=== PATIENT | male | born 1950 | race Caucasian/White ===

== ENCOUNTER 2018-08-10 12:45 | Inpatient (IN) | payer OTHER ==
[~2018-08-10] VITALS: Ht 165.1 cm; Wt 83.9 kg
[~2018-08-10 12:45] MED LIST: LIPITOR20 MG PO; NABUMETONE750 MG PO; NEURONTIN300 MG PO
[2018-08-17] MEDS ORDERED: GABAPENTIN800 MG PO (11:17)
[2018-08-17] MEDS ORDERED: DOCUSATE SODIU100 MG PO (11:17)
[2018-08-17] MEDS ORDERED: AMOX-CLAV 875-1 EACH PO (11:18)
[2018-08-17] MEDS ORDERED: PERCOCET 5-3251 EACH PO (11:18)
[2018-08-17] MEDS ORDERED: CLONAZEPAM1 MG PO (11:18)
== END 2018-08-17 14:45 | disposition home or self-care (01) | DRG 454 ==
LOC: O/R 08-16 05:01 → SURH 08-16 05:01
PROVIDERS: ADMIT Orthopaedic Surgery Orthopaedic Surgery of the Spine
PROC: 0SG1071 Fusion of 2 or more Lumbar Vertebral Joints with Autologous Tissue Substitute, Posterior Approach, Posterior Column, Open Approach (ICD-10-PCS; 2018-08-16)
PROC: 0SG10AJ Fusion of 2 or more Lumbar Vertebral Joints with Interbody Fusion Device, Posterior Approach, Anterior Column, Open Approach (ICD-10-PCS; 2018-08-16)
PROC: 0ST20ZZ Resection of Lumbar Vertebral Disc, Open Approach (ICD-10-PCS; 2018-08-16)
PROC: 07DS3ZZ Extraction of Vertebral Bone Marrow, Percutaneous Approach (ICD-10-PCS; 2018-08-16)
PROC: 0SG10A0 Fusion of 2 or more Lumbar Vertebral Joints with Interbody Fusion Device, Anterior Approach, Anterior Column, Open Approach (ICD-10-PCS; principal; 2018-08-16 16:45)
DX: M47.26 Other spondylosis with radiculopathy, lumbar region (principal); M96.0 Pseudarthrosis after fusion or arthrodesis; M48.062 Spinal stenosis, lumbar region with neurogenic claudication; M51.16 Intervertebral disc disorders with radiculopathy, lumbar region; Y65.8 Other specified misadventures during surgical and medical care